=== PATIENT | male | born 2000 | race Caucasian/White ===

== ENCOUNTER 2019-06-13 10:00 | Day surgery (SDC) | payer OTHER ==
[~2019-06-13] VITALS: Ht 157.5 cm; Wt 111.1 kg
[~2019-06-13 10:00] MED LIST: ACET160S3; ALL10TAB28 PO; AMOX400S2; CETI5CHW; EMLA CREAM 5GM (LIDOCAINE/PRILOCAINE) TOP PRN; FLON0.05; FLUTISP NARES; GUMMCHW PO; IBUP100S; LIDOCAINE 1% MDV 20ML VIAL SQ PRN; LR 1,000 ML IV ONE; METF500T13 PO; NASASPR; NASONEX NASAL SPRAY; THERGRAN; TYLENOL #3 ELIXIR; VIACTIVE
[2019-06-13] MEDS ORDERED: EMLA CREAM 5GM (LIDOCAINE/PRILOCAINE) As Ordered ONE (10:24)
[2019-06-13] MEDS ORDERED: PROPOFOL 200 MG/20 ML VIAL As Ordered ONE (10:58)
[2019-06-13] MEDS ORDERED: ONDANSETRON 4MG/2ML VIAL (J2405) As Ordered ONE (10:59)
[2019-06-13] MEDS ORDERED: LIDOCAINE 2% INJ 100 MG/5 ML SDV (FOR ANES.) As Ordered ONE (10:59)
[2019-06-13] MEDS ORDERED: SUCCINYLCHOLINE 100 MG/5 ML SYRINGE (J0330) As Ordered ONE (10:59)
[2019-06-13] MEDS ORDERED: dexameTHASONE 4 MG/ML 1ML VIAL (J1100) As Ordered ONE (10:59)
[2019-06-13] MEDS ORDERED: fentaNYL 100 MCG/2 ML INJECTION (J3010) As Ordered ONE (11:02)
[2019-06-13] MEDS ORDERED: LIDOCAINE W/EPINEPHRINE 1% 20ML VIAL As Ordered ONE (11:23)
[2019-06-13] MEDS ORDERED: ACETAMINOPHEN 1000MG 100ML IV BTL (OFIRMEV) (J0131 PER 10MG) As Ordered ONE (12:07)
[2019-06-13] MEDS ORDERED: PERCOCET 5MG/325MG TAB PO PRN (13:00)
[2019-06-13] MEDS ORDERED: LR 1,000 ML IV SCH ×2 (13:00→14:01)
[2019-06-13] MEDS ORDERED: fentaNYL 100 MCG/2 ML INJECTION (J3010) IV PRN (13:00)
[2019-06-13] MEDS ORDERED: ONDANSETRON 4MG/2ML VIAL (J2405) IV PRN (13:00)
[2019-06-13] MEDS ORDERED: HYDROMORPHONE HCL 0.5 MG/ 0.5 ML SYRINGE (J1170 PER 1) IV PRN (13:00)
[2019-06-13 14:00] VITALS: BP 124/79
--- NOTE | 2019-06-14 14:18 | RO ---
DATE OF PROCEDURE: 06/13/2019 PREOPERATIVE DIAGNOSIS: Impacted teeth. POSTOPERATIVE DIAGNOSIS: Impacted teeth. PROCEDURE PERFORMED: Extraction of teeth numbers 17 and 32. SURGEON: Juve Faust DMD [employer] [facility]: ANESTHESIA: General. ESTIMATED BLOOD LOSS: 5 mL. COMPLICATIONS: None. SPECIMENS: Teeth.
== END 2019-06-13 14:00 | disposition home or self-care (01) ==
LOC: M SDC 10:00
PROVIDERS: ATTEND Dentist Oral and Maxillofacial Surgery
DX: K01.1 Impacted teeth (principal); E11.9 Type 2 diabetes mellitus without complications; G47.30 Sleep apnea, unspecified; Z79.84 Long term (current) use of oral hypoglycemic drugs; Z79.899 Other long term (current) drug therapy; Q90.9 Down syndrome, unspecified
CPT/HCPCS: 41899; 88300; J0131; J0330; J1100; J2405; J3010